=== PATIENT | male | born 1945 | race Caucasian/White ===

== ENCOUNTER 2022-03-21 10:42 | Emergency (ER) | payer OTHER ==
[~2022-03-21] VITALS: Ht 165.1 cm; Wt 84.8 kg
[2022-03-21 10:48] VITALS: BP_SYST 145
--- NOTE | 2022-03-21 10:52 | NUR ---
Dr Davis evaluating patient in the triage room
--- NOTE | 2022-03-21 11:13 | NUR ---
PT PLACED IN ROOM 5, PHELBOTOMY BY BEDSIDE, PT WAS NOT IN AGREENESS ABOUT HIS WORK UP. PT DENIED LABWORK AND STATED HE WILL FOLLOW UP WITH PCP. AMA WAS SIGNED AND PT WAS EDUCATED ON POLICY AND PROCEDURE FOR HOSPITAL.
[2022-03-21] MEDS ORDERED: D5/0.45 NS 1,000 ML IV ONE (12:30)
== END 2022-03-21 11:15 | disposition left against medical advice (07) ==
LOC: SED 10:42
DX: D75.1 Secondary polycythemia (principal); Z79.899 Other long term (current) drug therapy
CPT/HCPCS: 99281